=== PATIENT | female | born 1950 | race Caucasian/White ===

== ENCOUNTER 2021-05-18 13:51 | Emergency (ER) | payer MEDICARE ==
[~2021-05-18] VITALS: Ht 152.4 cm; Wt 81.6 kg
[2021-05-18 14:19] VITALS: BP 150/79
[2021-05-18] MEDS ORDERED: ZPAK PO ×2 (15:53→16:07)
== END 2021-05-18 16:14 | disposition home or self-care (01) ==
LOC: ED 13:51
DX: U07.1 COVID-19 (principal); I10 Essential (primary) hypertension; E78.00 Pure hypercholesterolemia, unspecified

== ENCOUNTER 2021-05-24 14:39 | Emergency (ER) | payer MEDICARE ==
[~2021-05-24] VITALS: Ht 152.4 cm; Wt 84.0 kg
[~2021-05-24 14:39] MED LIST: ZPAK PO
[2021-05-24 15:21] LABS: HEMATOCRIT 47.5 % (37.0-47.0); HEMOGLOBIN 15.3 g/dl (12.0-16.0); IMMATURE GRANULOCYTES 0.6 % (0.0-5.0); MEAN CELL VOLUME 90.6 fL CALC (80.0-100.0); MEAN CORPUSCULAR HGB 29.2 pG CALC (26.0-32.0); MEAN CORPUSCULAR HGB CONC 32.2 g/dL CAL (32.0-36.0); NEUT# 7.71 thou/uL (2.00-7.15); RED BLOOD COUNT 5.24 mill/uL (4.20-5.60); RED CELL DISTRI WIDTH 13.8 % (11.5-15.5)
[2021-05-24 15:33] LABS: ALBUMIN 4.4 g/dL (3.2-5.0); ALKALINE PHOSPHATASE 140 u/l (38-126); ANION GAP 19 (6-22 (CALC)); BILIRUBIN, TOTAL 0.5 mg/dL (0.0-1.4); BUN 15 mg/dL (8-23); BUN/CREATININE RATIO 21 (12-20 (CALC)); CARBON DIOXIDE 19 mmol/l (22-30); CHLORIDE 106 mmol/l (95-108); CREATININE 0.8 mg/dL (0.5-1.0); GFR > 60 ML/MIN (>=60 (CALC)); GFR FOR AFR.AMER. > 60 ML/MIN (>=60 (CALC)); MAGNESIUM 1.5 mg/dL (1.6-2.3); POTASSIUM 3.8 mmol/l (3.5-5.1); SGOT/AST 28 u/l (9-36); SODIUM 141 mmol/l (137-146); TOTAL PROTEIN 7.7 g/dL (6.3-8.2)
[2021-05-24 16:12] LABS: URINE BLOOD DIPSTICK LARGE (NEGATIVE); URINE COLOR BROWN; URINE GLUCOSE - DIPSTICK 100 mg/dL (NEGATIVE); URINE KETONE 15 mg/dL (NEGATIVE); URINE PH 5.5 (4.5-8.0); URINE PROTEIN - DIPSTICK >=300 mg/dL (NEG-TRACE); URINE SPECIFIC GRAVITY >=1.030
[2021-05-24 16:15] LABS: URINE BILIRUBIN - DIPSTICK NEGATIVE (NEGATIVE); URINE LEUK ESTERASE SMALL (NEGATIVE); URINE NITRITE - DIPSTICK POSITIVE (Negative)
[2021-05-24 16:16] LABS: URINE RBC >100 RBC/hpf (0-5); URINE SQUAMOUS EPITHELIAL CELL FEW EPI/hpf (0-FEW); URINE WBC 20-50 WBC/hpf (0-5)
[2021-05-24] MEDS ORDERED: CIPROFLOXACN500 MG PO (17:19)
[2021-05-24] MEDS ORDERED: PYRIDIUM200 MG PO (17:19)
[2021-05-24 17:40] VITALS: BP 140/70
== END 2021-05-24 17:40 | disposition home or self-care (01) ==
LOC: ED 14:39
PROVIDERS: Emergency Medicine
DX: U07.1 COVID-19 (principal); A08.39 Other viral enteritis; N39.0 Urinary tract infection, site not specified; B96.20 Unspecified Escherichia coli [E. coli] as the cause of diseases classified elsewhere; I10 Essential (primary) hypertension

== ENCOUNTER 2022-05-17 08:40 | Emergency (ER) | payer MEDICARE, BC ==
[~2022-05-17] VITALS: Ht 152.4 cm; Wt 90.7 kg
[~2022-05-17 08:40] MED LIST changes: +CIPROFLOXACN500 MG PO; +PYRIDIUM200 MG PO
[2022-05-17 08:51] VITALS: BP 145/75
[2022-05-17 09:00] VITALS: BP 134/72
[2022-05-17 09:15] VITALS: BP 133/78
[2022-05-17 09:31] VITALS: BP 141/76
[2022-05-17 09:45] VITALS: BP 126/59
[2022-05-17 09:53] VITALS: BP 126/59
== END 2022-05-17 10:01 | disposition home or self-care (01) ==
LOC: ED 08:40
DX: R04.0 Epistaxis (principal); I10 Essential (primary) hypertension; E78.00 Pure hypercholesterolemia, unspecified